=== PATIENT | female | born 1950 | race Caucasian/White ===

== ENCOUNTER 2020-09-21 11:03 | Outpatient (CLI) | payer MEDICARE ==
--- NOTE | 2020-09-21 15:45 | RAD ---
CHEST TWO VIEWS: 09/21/20 The heart is normal in size. Calcification is seen in the aorta. The lungs are hyperexpanded suggesti ng COPD. There is no major lobar infiltrate or effusion. There is a little bit of perihilar streaking . I cannot tell if this is chronic fibrosis or actual minimal infiltrate. There is no prior film for comparison. IMPRESSION: 1. COPD and arteriosclerosis. 2. Minimal perihilar streaking which could be either longstanding or acute. POS: HOME
== END 2020-09-21 11:04 | disposition home or self-care (01) ==
LOC: BURRAD 11:03
PROVIDERS: ATTEND Physician Assistant
DX: J44.1 Chronic obstructive pulmonary disease with (acute) exacerbation (principal); I70.0 Atherosclerosis of aorta
CPT/HCPCS: 71046

== ENCOUNTER 2022-09-30 14:18 | Emergency (ER) | payer MEDICARE ==
[2022-09-30] MEDS ORDERED: Ketorolac Tromethamine 30 MG/ML VIAL ONE (14:41)
[2022-09-30 14:42] LABS: #Basophils 0.1 thou/uL (0.0-0.2); #Lymphocytes 0.9 thou/uL (1.20-3.40); #Monocytes 0.7 thou/uL (0.11-0.59); #Neutrophils 11.1 thou/uL (1.40-6.50); %Basophils 0.5 % (0.0-1.0); %Eosinophils 0.1 % (0.0-10.0); %Lymphocytes 6.8 % (21.0-51.0); %Monocytes 5.1 % (0.0-10.0); %Neutrophils 87.6 % (42.0-75.0); Hemoglobin 12.4 g/dL (12.0-16.0); Mean Corpuscular HGB CONC 32.4 g/dL (32.0-36.0); Mean Corpuscular Hemoglobin 29.6 pg (27.0-31.0); Mean Corpuscular Volume 91.1 fl (78.0-98.0); Mean Platelet Volume 5.9 fL (7.4-10.4); Platelet Count 281 10x3/uL (130-400); RBC Distribution Width 13.4 % (11.5-14.5); White Blood Cell (WBC) Count 12.7 10x3/uL (4.8-10.8)
[2022-09-30 15:00] LABS: ALT (SGPT) 9 U/L (8-55); AST (SGOT) 14 U/L (5-34); Albumin 4.2 g/dL (3.4-4.8); Alkaline Phosphatase 81 U/L (40-110); Anion Gap 13 mmol/L (10-20); BUN (Urea Nitrogen) 18 mg/dL (9.8-20.1); Bilirubin, Total 0.5 mg/dL (0.2-1.2); Calc. Creatinine Clearance 0 mL/min (70-130); Calcium 9.5 mg/dL (7.8-10.44); Carbon Dioxide 26 mmol/L (23-31); Chloride 107 mmol/L (98-107); Estimated GFR 70; Globulin 2.9 g/dL (2.4-3.5); Glucose 107 mg/dL (83-110); Protein, Total 7.1 g/dL (5.8-8.1); Sodium 142 mmol/L (136-145)
[2022-09-30] MEDS ORDERED: Iopamidol 370 76% 100 ML VIAL ONE (15:23)
[2022-09-30] MEDS ORDERED: Sodium Chloride 0.9% 100 ML ONE (15:55)
[2022-09-30] MEDS ORDERED: Vancomycin 1 GM VIAL ONE (15:55)
[2022-09-30] MEDS ORDERED: cefTRIAXone\\ROCEPHIN 2 GM VIAL ONE (15:55)
[2022-09-30 16:08] LABS: Bilirubin Negative (Negative); Blood, Urine Negative (Negative); Clarity Slightly Cloudy (Clear); Glucose, Urine (Dipstick) Negative (Negative); Ketone, Urine Negative (Negative); Leukocyte Trace (Negative); Nitrite Positive (Negative); Protein, Urine (Dipstick) Negative (Neg-Trace); Specific Gravity, Urine 1.015 (1.005-1.030); Urobilinogen 0.2 mg/dL (Less than 2); pH, Urine 7.5 (5.0-9.0)
[2022-09-30 16:13] LABS: Bacteria/HPF 1+ HPF (None Seen); RBC/HPF 0-3 HPF (0-3)
[2022-09-30] MEDS ORDERED: Fentanyl 100 MCG/2 ML VIAL ONE (16:25)
[2022-09-30] MEDS ORDERED: Ondansetron PF 4 MG/2 ML Vial ONE (16:26)
[2022-10-01 13:08] LABS: Synovial Fluid, Protein 4.1 g/dL (Not Available); Synovial Fluid, Uric Acid 3.2 mg/dL (Not Available)
[2022-10-01 13:42] LABS: RBC Count-Automated (BF) 4351 /cu.mm; WBC/Nucleated-Auto (BF) 46658 /cu.mm
[2022-10-01 14:09] LABS: BF Color Yellow; Body Fluid Source Synovial Fluid; Clarity Cloudy/Turbid (Clear); Tube # EDTA
[2022-10-01 14:14] LABS: BF Segmented Neutrophils 87 %; Cell Count Non Hematic 11 %; Lymphocytes 2 %
== END 2022-09-30 16:55 | disposition short-term general hospital (02) ==
LOC: BURERS 14:18
DX: M00.9 Pyogenic arthritis, unspecified (principal); F17.210 Nicotine dependence, cigarettes, uncomplicated
CPT/HCPCS: 36415; 74177; 80053; 81003; 81015; 82945; 84157; 84560; 85025; 85060; 87040; 87070; 87205; 89051; 89060; 96365; 96367; 96375; J0696; J1885; J2405; J3010; J3370; J3490; Q9967

== ENCOUNTER 2024-11-27 12:47 | Emergency (ER) | payer MEDICARE | END 2024-11-27 14:05 | disposition home or self-care (01) | LOC: BURERS 12:47 | DX: J10.1 Influenza due to other identified influenza virus with other respiratory manifestations (principal); F17.210 Nicotine dependence, cigarettes, uncomplicated | CPT/HCPCS: 71046; 87400; 87426 ==